=== PATIENT | female | born 1970 | race American Indian/Alaskan Native ===

== ENCOUNTER 2018-04-23 09:04 | Emergency (ER) | payer SELFPAY ==
[2018-04-23 09:29] VITALS: BP 147/75
--- NOTE | 2018-04-23 11:35 | Emergency Department Report ---
ED Neck Pain/Injury HPI - General Chief Complaint: Pain General Stated Complaint: LEFT SIDE PAIN Time Seen by Provider: 04/23/18 11:06 Mode of arrival: Ambulatory Limitations: No Limitations - History of Present Illness Initial Comments: 47-year-old female reports left arm and leg pain 3 weeks. Patient states she is having pain and left neck which is radiating down left arm and into her fingers. Reports slight, intermittent tingling in fingertips. She also reports low back pain radiating into left leg. Patient denies fever. Patient denies weakness and arm and leg. Denies chest pain. Patient denies any injury or trauma or fall. Patient denies difficulty urinating or urinary incontinence. MD Complaint: neck pain, other (low back pain) -: week(s) (3) Radiation: chest (left lower extremity), left upper extremity Severity: moderate Quality: sharp Consistency: intermittent Improves With: none Worsens With: other (movement) Context: unknown Associated Symptoms: tingling. denies: headache, fever, weakness, difficulty walking - Related Data Previous Rx's Medication Instructions Recorded Last Taken Type Methocarbamol [Robaxin-750] 750 mg PO Q6HR PRN #20 tablet 04/23/18 Unknown Rx predniSONE [Prednisone] 50 mg PO DAILY #5 tablet 04/23/18 Unknown Rx traMADol [Ultram] 50 mg PO Q6HR PRN #7 tablet 04/23/18 Unknown Rx Allergies Allergy/AdvReac Type Severity Reaction Status Date / Time naproxen [From Aleve] Allergy Swelling Verified 04/23/18 09:24 ED Review of Systems ROS: Stated complaint: LEFT SIDE PAIN Other details as noted in HPI Comment: All other systems reviewed and negative Constitutional: denies: chills, fever Cardiovascular: denies: chest pain Musculoskeletal: as per HPI Neurological: paresthesias. denies: weakness ED Past Medical Hx - Past Medical History Previous Medical History?: Yes Hx Hypertension: Yes - Surgical History Past Surgical History?: Yes Additional Surgical History: - Social History Smoking Status: Never Smoker Substance Use Type: Alcohol - Medications Home Medications: Home Medications Medication Instructions Recorded Confirmed Last Taken Type Methocarbamol [Robaxin-750] 750 mg PO Q6HR PRN #20 tablet 04/23/18 Unknown Rx predniSONE [Prednisone] 50 mg PO DAILY #5 tablet 04/23/18 Unknown Rx traMADol [Ultram] 50 mg PO Q6HR PRN #7 tablet 04/23/18 Unknown Rx ED Physical Exam - General Limitations: No Limitations General appearance: alert, in no apparent distress - Head Head exam: Present: atraumatic, normocephalic - Eye Eye exam: Present: normal appearance - ENT ENT exam: Present: mucous membranes moist - Neck Neck exam: Present: normal inspection, other (tenderness to left paraspinal cervical area) - Respiratory Respiratory exam: Present: normal lung sounds bilaterally. Absent: respiratory distress - Cardiovascular Cardiovascular Exam: Present: regular rate, normal rhythm - GI/Abdominal GI/Abdominal exam: Present: soft. Absent: tenderness - Extremities Exam Extremities exam: Present: normal inspection, full ROM, normal capillary refill , pedal edema, other (pulses present and nml; pt has firm knot over left anterior foot, nontender, no erythema, no fluctuance). Absent: tenderness - Back Exam Back exam: Present: other (tenderness to paraspinal left lumbar region L4-5) - Neurological Exam Neurological exam: Present: alert, oriented X3, normal gait. Absent: motor sensory deficit - Psychiatric Psychiatric exam: Present: normal affect, normal mood - Skin Skin exam: Present: warm, dry, intact, normal color ED Course Vital Signs 04/23/18 09:25 Temperature 97.9 F Pulse Rate 82 Respiratory 16 Rate Blood Pressure 147/75 O2 Sat by Pulse 100 Oximetry ED Medical Decision Making - EKG Data -: EKG Interpreted by Vt EKG shows normal: sinus rhythm (rate 79), axis (nml), intervals (nml), QRS complexes (nml), ST-T waves (T wave inv inferolateral leads) - EKG Data Interpretation: nonspecific ST-T wave ernesto - Medical Decision Making 47-year-old female presents to ED with 3 week history of neck pain radiating into left arm and low back pain radiating into left leg. It has no signs of cauda equina syndrome. Vision is ambulatory strength is intact. Only reports tingling in fingertips and toes. Possible cervical and lumbar radiculopathy. We will give prescription for steroids pain meds and muscle relaxer. Advised use of heating pad as well. Will give outpatient ortho information follow-up - Differential Diagnosis lumbar radiculopathy, cervical radiculopathy, DDD, herniated disc Critical care attestation.: If time is entered above; I have spent that time in minutes in the direct care of this critically ill patient, excluding procedure time. ED Disposition Clinical Impression: Cervical radiculopathy, Lumbar radiculopathy Disposition: TO HOME OR SELFCARE Is pt being admited?: No Condition: Stable Instructions: Lumbar Radiculopathy (ED), Cervical Radiculopathy (ED) Prescriptions: Methocarbamol [Robaxin-750] 750 mg PO Q6HR PRN #20 tablet PRN Reason: Spasms predniSONE [Prednisone] 50 mg PO DAILY #5 tablet traMADol [Ultram] 50 mg PO Q6HR PRN #7 tablet PRN Reason: Pain Referrals: BELLA ALEMAN MD [Staff Physician] - 3-5 Days PRIMARY CAREMD [Primary Care Provider] - 3-5 Days Time of Disposition: 11:41
== END 2018-04-23 11:49 | disposition home or self-care (01) ==
LOC: ED 09:04
DX: M54.12 Radiculopathy, cervical region (principal); M54.16 Radiculopathy, lumbar region; I10 Essential (primary) hypertension; Z88.6 Allergy status to analgesic agent
CPT/HCPCS: 93005; 93010; 99282

== ENCOUNTER 2021-08-30 12:32 | Emergency (ER) | payer SELFPAY ==
[2021-08-30] MEDS ORDERED: dexAMETHasone 20 MG/5 ML VIAL IM ONE (15:30)
--- NOTE | 2021-08-30 15:36 | Emergency Department Report ---
ED Back Pain/Injury HPI - General Chief Complaint: Back Pain/Injury Stated Complaint: PAIN TO LEFT SIDE Source: patient Limitations: No Limitations - History of Present Illness Initial Comments: 51-year-old female presents to the ED complaining of low back pain radiating to left leg. Patient has a history of chronic back pain to arthritis of the back. Patient denies any trauma. Denies any loss of bowel or bladder. Patient is alert and oriented x4. Patient is ambulatory . Denies any fever . MD Complaint: back pain Onset/Timin -: week(s) Similar Symptoms Previously: Yes Radiation: left leg Severity scale (0 -10): 6 Quality: tingling Consistency: intermittent Improves With: sitting upright Worsens With: movement Associated Symptoms: denies: confusion, weakness, chest pain, numbness, diaphoresis, incontinence, fever/chills, headaches, nausea/vomiting, shortness of breath - Related Data Previous Rx's Medication Instructions Recorded Last Taken Type methocarbamoL [Robaxin-750] 750 mg PO Q6HR PRN #20 tablet 04/23/18 Unknown Rx predniSONE [Prednisone] 50 mg PO DAILY #5 tablet 04/23/18 Unknown Rx traMADoL [Ultram] 50 mg PO Q6HR PRN #7 tablet 04/23/18 Unknown Rx predniSONE [Deltasone] 50 mg PO QDAY 3 Days #3 tab 08/30/21 Unknown Rx traMADoL [Ultram] 50 mg PO Q4HR PRN 3 Days #12 tablet 08/30/21 Unknown Rx Allergies Allergy/AdvReac Type Severity Reaction Status Date / Time naproxen [From Aleve] Allergy Swelling Verified 04/23/18 09:24 ED Review of Systems ROS: Stated complaint: PAIN TO LEFT SIDE Other details as noted in HPI Constitutional: denies: chills, fever Eyes: denies: eye pain, eye discharge, vision change ENT: denies: ear pain, throat pain Respiratory: denies: cough, shortness of breath, wheezing Cardiovascular: denies: chest pain, palpitations Endocrine: no symptoms reported Gastrointestinal: denies: abdominal pain, nausea, diarrhea Genitourinary: denies: urgency, dysuria, discharge Musculoskeletal: denies: back pain, joint swelling, arthralgia Skin: denies: rash, lesions Neurological: denies: headache, weakness, paresthesias Psychiatric: denies: anxiety, depression Hematological/Lymphatic: denies: easy bleeding, easy bruising ED Past Medical Hx - Past Medical History Previous Medical History?: Yes Hx Hypertension: Yes - Surgical History Additional Surgical History: - Social History Smoking Status: Never Smoker Substance Use Type: Alcohol - Medications Home Medications: Home Medications Medication Instructions Recorded Confirmed Last Taken Type methocarbamoL [Robaxin-750] 750 mg PO Q6HR PRN #20 tablet 04/23/18 Unknown Rx predniSONE [Prednisone] 50 mg PO DAILY #5 tablet 04/23/18 Unknown Rx traMADoL [Ultram] 50 mg PO Q6HR PRN #7 tablet 04/23/18 Unknown Rx predniSONE [Deltasone] 50 mg PO QDAY 3 Days #3 tab 08/30/21 Unknown Rx traMADoL [Ultram] 50 mg PO Q4HR PRN 3 Days #12 tablet 08/30/21 Unknown Rx ED Physical Exam - General Limitations: No Limitations General appearance: alert, in no apparent distress - Head Head exam: Present: atraumatic, normocephalic - Eye Eye exam: Present: normal appearance - ENT ENT exam: Present: mucous membranes moist - Neck Neck exam: Present: normal inspection - Respiratory Respiratory exam: Present: normal lung sounds bilaterally. Absent: respiratory distress - Cardiovascular Cardiovascular Exam: Present: regular rate, normal rhythm. Absent: systolic murmur, diastolic murmur, rubs, gallop - GI/Abdominal GI/Abdominal exam: Present: soft, normal bowel sounds - Extremities Exam Extremities exam: Present: normal inspection - Back Exam Back exam: Present: normal inspection, full ROM, tenderness - Expanded Back Exam Expanded Back exam: Sciatic Notch Tenderness: Left, Positive Straight Leg Raise: Left - Neurological Exam Neurological exam: Present: alert, oriented X3 - Psychiatric Psychiatric exam: Present: normal affect, normal mood - Skin Skin exam: Present: warm, dry, intact, normal color. Absent: rash ED Course Vital Signs 08/30/21 08/30/21 12:35 16:46 Temperature 98.3 F 97.0 F L Pulse Rate 64 75 Respiratory 16 16 Rate Blood Pressure 195/112 167/112 [Left] O2 Sat by Pulse 98 98 Oximetry ED Medical Decision Making - Medical Decision Making 51-year-old female presents to the ED complaining of low back pain radiating to left leg. Patient has a history of chronic back pain to arthritis of the back. Patient denies any trauma. Denies any loss of bowel or bladder. Patient is alert and oriented x4. Patient is ambulatory . Denies any fever . Patient has previous head low back pain. The examination is unremarkable and benign. Vital signs are stable. Discussed with patient about diagnosis patient verbalized understanding. She is to follow-up with her PCP. Critical care attestation.: If time is entered above; I have spent that time in minutes in the direct care of this critically ill patient, excluding procedure time. ED Disposition Clinical Impression: Low back pain Qualifiers: Chronicity: acute Back pain laterality: bilateral Sciatica presence: with sciatica Sciatica laterality: sciatica of left side Qualified Code(s): M54.42 - Lumbago with sciatica, left side Disposition: 01 HOME / SELF CARE / HOMELESS Is pt being admited?: No Does the pt Need Aspirin: No Condition: Stable Instructions: Sciatica, Chronic Back Pain Additional Instructions: Follow-up with orthopedic as needed Follow-up with primary care doctor his need Take medication as prescribed Return to ED for worsening symptoms Prescriptions: predniSONE [Deltasone] 50 mg PO QDAY 3 Days #3 tab traMADoL [Ultram] 50 mg PO Q4HR PRN 3 Days #12 tablet PRN Reason: Pain Referrals: PRIMARY CARE, [Primary Care Provider] - 3-5 Days [facility] [Provider Group] - 3-5 Days Time of Disposition: 15:52
[2021-08-30] MEDS ORDERED: dexAMETHasone 4 MG/ML VIAL ONE (16:01)
[2021-08-30 16:49] VITALS: BP 167/112
== END 2021-08-30 16:50 | disposition home or self-care (01) ==
LOC: ED 12:32
DX: M54.50 Low back pain, unspecified (principal); I10 Essential (primary) hypertension
CPT/HCPCS: 96372; 99282; J1100

== ENCOUNTER 2022-03-16 12:35 | Emergency (ER) | payer SELFPAY ==
[2022-03-16 14:21] VITALS: BP 165/95
--- NOTE | 2022-03-16 15:36 | XRay Report ---
Right foot-3 views INDICATION: PAIN R FOOT. COMPARISON: None available. IMPRESSION: No acute osseous abnormality. Normal alignment. No significant DJD. Soft tissues are u nremarkable. Signer Name: Waqas Savage MD Signed: 03/16/2022 3:32 PM Workstation Name: [id number]
--- NOTE | 2022-03-16 15:36 | Emergency Department Report ---
ED Lower Extremity HPI - General Chief Complaint: Extremity Injury, Lower Stated Complaint: RT FOOT ACHE Time Seen by Provider: 03/16/22 15:01 Source: patient Mode of arrival: Stretcher Limitations: No Limitations - History of Present Illness Initial Comments: Patient is a 51-year-old female that comes to the ER complaining of right foot pain after a shelf fell on her foot yesterday. She is ambulatory to the ER. Neurovascularly intact. Complaint: foot injury -: Sudden, days(s) Place: home Severity: mild Context: direct blow - Related Data Previous Rx's Medication Instructions Recorded Last Taken Type methocarbamoL [Robaxin-750] 750 mg PO Q6HR PRN #20 tablet 04/23/18 Unknown Rx predniSONE [Prednisone] 50 mg PO DAILY #5 tablet 04/23/18 Unknown Rx traMADoL [Ultram] 50 mg PO Q6HR PRN #7 tablet 04/23/18 Unknown Rx predniSONE [Deltasone] 50 mg PO QDAY 3 Days #3 tab 08/30/21 Unknown Rx traMADoL [Ultram] 50 mg PO Q4HR PRN 3 Days #12 tablet 08/30/21 Unknown Rx Ibuprofen [Motrin] 800 mg PO Q8HR PRN #30 tablet 03/16/22 Unknown Rx Allergies Allergy/AdvReac Type Severity Reaction Status Date / Time No Known Allergies Allergy Unverified 03/16/22 14:17 ED Review of Systems ROS: Stated complaint: RT FOOT ACHE Other details as noted in HPI Comment: All other systems reviewed and negative ED Past Medical Hx - Past Medical History Previous Medical History?: Yes Hx Hypertension: Yes - Surgical History Past Surgical History?: Yes Additional Surgical History: - Family History Family history: no significant - Social History Smoking Status: Never Smoker Substance Use Type: Alcohol - Medications Home Medications: Home Medications Medication Instructions Recorded Confirmed Last Taken Type methocarbamoL [Robaxin-750] 750 mg PO Q6HR PRN #20 tablet 04/23/18 Unknown Rx predniSONE [Prednisone] 50 mg PO DAILY #5 tablet 04/23/18 Unknown Rx traMADoL [Ultram] 50 mg PO Q6HR PRN #7 tablet 04/23/18 Unknown Rx predniSONE [Deltasone] 50 mg PO QDAY 3 Days #3 tab 08/30/21 Unknown Rx traMADoL [Ultram] 50 mg PO Q4HR PRN 3 Days #12 tablet 08/30/21 Unknown Rx Ibuprofen [Motrin] 800 mg PO Q8HR PRN #30 tablet 03/16/22 Unknown Rx ED Physical Exam - General Limitations: No Limitations General appearance: alert, in no apparent distress - Head Head exam: Present: atraumatic, normocephalic - Eye Eye exam: Present: normal appearance - ENT ENT exam: Present: mucous membranes moist - Neck Neck exam: Present: normal inspection - Respiratory Respiratory exam: Present: normal lung sounds bilaterally. Absent: respiratory distress - Cardiovascular Cardiovascular Exam: Present: regular rate, normal rhythm. Absent: systolic murmur, diastolic murmur, rubs, gallop - GI/Abdominal GI/Abdominal exam: Present: soft, normal bowel sounds - Extremities Exam Extremities exam: Present: normal inspection - Back Exam Back exam: Present: normal inspection - Neurological Exam Neurological exam: Present: alert, oriented X3 - Psychiatric Psychiatric exam: Present: normal affect, normal mood - Skin Skin exam: Present: warm, dry, intact, normal color. Absent: rash ED Course Vital Signs 03/16/22 14:17 Temperature 97.7 F Pulse Rate 57 L Respiratory 18 Rate Blood Pressure 165/95 [Left] O2 Sat by Pulse 98 Oximetry ED Lower Extremity MDM - Radiology Data Radiology results: report reviewed, image reviewed no fx - Medical Decision Making xray neg no abrasion /lac ambulatory neurovasc intact motrin for pain. Patient is asking for narcotics. She states that Tylenol Motrin would not help her pain. I have told her that in the ER she will not get an states for a contusion and that if she needed something stronger she need to follow-up outpatient. She verbalizes understanding. dc home with dc plan of care including diet, meds, activity and follow up. Pt verbalizes understanding of plan of care. Vital Signs 03/16/22 14:17 Temperature 97.7 F Pulse Rate 57 L Respiratory 18 Rate Blood Pressure 165/95 [Left] O2 Sat by Pulse 98 Oximetry - Differential Diagnosis ro fx Critical care attestation.: If time is entered above; I have spent that time in minutes in the direct care of this critically ill patient, excluding procedure time. ED Disposition Clinical Impression: Contusion, foot Disposition: 01 HOME / SELF CARE / HOMELESS Is pt being admited?: No Does the pt Need Aspirin: No Condition: Stable Instructions: Foot Contusion, [id number] Additional Instructions: rest ice elevate foot for comfort tylenol can be used for pain med as ordered today for pain if pain persists see pcp or ortho MD referrals below Prescriptions: Ibuprofen [Motrin] 800 mg PO Q8HR PRN #30 tablet PRN Reason: Pain, Moderate (4-6) Referrals: BELLA ALEMAN MD [Staff Physician] - 3-5 Days SERGEI HARRY MD [Staff Physician] - 3-5 Days Forms: Work/School Release Form(ED) Time of Disposition: 16:15
[2022-03-16] MEDS ORDERED: IBUPROFEN 800 MG TAB PO ONE (16:13)
== END 2022-03-16 17:01 | disposition home or self-care (01) ==
LOC: ED 12:35
DX: S90.31XA Contusion of right foot, initial encounter (principal); F10.20 Alcohol dependence, uncomplicated; I10 Essential (primary) hypertension; X58.XXXA Exposure to other specified factors, initial encounter; Y93.89 Activity, other specified; Y92.89 Other specified places as the place of occurrence of the external cause; Y99.8 Other external cause status
CPT/HCPCS: 99283